=== PATIENT | female | born 1990 | race Caucasian/White ===

== ENCOUNTER 2016-06-25 16:36 | Emergency (ER) | payer SELFPAY ==
[2016-06-25 16:36] VITALS: BMI 26.6
[2016-06-25 16:46] VITALS: BP 123/67; PULSE 75; TEMP 98.4
--- NOTE | 2016-06-25 17:23 | EDPRACDOC ---
- General Information Chief Complaint: Generalized Weakness Stated Complaint: DIZZINESS Time Seen by Provider: 06/25/16 17:05 Information Source: Patient Home Medications: Home Medications Phenazopyridine HCl [Pyridium] 200 mg PO TID #6 tablet 04/07/16 Sulfamethoxazole/Trimethoprim [Bactrim Ds Tablet] 1 tab PO BID #14 tab 04/07/16 Amoxicillin 500 mg PO BID #14 capsule 06/25/16 Fluticasone Propionate [Flonase Nasal [place]] 2 spray AIDEN DAILY #1 each 06/25/16 Loratadine/Pseudoephedrine Sul [Claritin-D 12 Hour Tablet] 1 each PO BID #14 tab.sr.12h 06/25/16 Allergies/Adverse Reactions: Allergies Allergy/AdvReac Type Severity Reaction Status Date / Time No Known Allergies Allergy Verified 06/25/16 16:46 - History of Present Illness Onset: 1 DAY Exact Onset of Symptoms: Known Date Symptoms Started: 06/25/16 HPI: PT STATES FOR THE LAST DAY SHE HAS HAD DIZZINESS RIGHT EAR FULLNESS RUNNY NOSE PT STATES HER CHILD IS SICK WITH URI. 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 OFF MEDS RESOLVED 03/28/2016). Denies: Atrial Fibrillation, Stress Test, Hypercholesterolemia, Internal Defibrillator, Cardiomyopathy, Valvular Heart Disease Respiratory History: Denies: Bronchitis, Asbestosis, Aspiration Pneumonia, Cough , Chronic Bronchitis GI/ History: Reports: Kidney Stones (PASSED WITH OUT INTERVENTION). Denies: Renal (Kidney) Cancer, Kidney (Renal Surgery), Liver Failure, Gastroesophageal Reflux, IBD, BPH Musculoskeletal History: Denies: Rheumatoid Arthritis, Osteoarthritis Psychological History: Denies: Depression, Schizophrenia, Substance Use Disorder Systemic History: Denies: Cancer, Diabetes, HIV, Lupus Surgical History: Reports: Cholecystectomy. Denies: Hysterectomy, Tonsillectomy , Tonsillectomy/Adnoidectomy, Other - Family Medical History Reports: Hypertension (SISTER ), Cancer (MOTHER BREAST CA). Denies: Diabetes, Stroke, Cardiac Disorders, Respiratory Disorders, Renal Disease, Blood Disorders - Social Medical History Smoking Status: Heavy tobacco smoker (5 or more cigarettes/day or daily pipe/ cigar) Social History: Denies: Substance Use Disorder ETOH: None Substance Abuse: None Lives With: Other Lives In: Home EDM Review of Systems - Review of Systems ROS Negative Except as Marked: Yes All systems reviewed and were negative except as marked Constitutional: No Symptoms Reported. negative: Fever, Chills, Weakness, Fatigue, Loss of Appetite Eyes: No Symptoms Reported. negative: Redness, Blurred Vision, Double Vision, Discharge, Pain, Light Sensitive, Photophobia Ears: Other (RIGHT EAR FULLNESS). negative: Drainage, Ear Pulling, Hearing Loss , Pain Throat: No Symptoms Reported. negative: Pain, Swelling Nose: Congestion. negative: Abrasion, Bleeding, Discharge, Deformity, Ecchymosis, Injection, Laceration, Swelling, Tender Mouth: No Symptoms Reported. negative: Pain, Drooling Respiratory: No Symptoms Reported. negative: Cough, Brassy Cough, Barky Cough, Shortness of Breath, Wheezing, Hemoptysis Cardiovascular: No Symptoms Reported. negative: Chest Pain, Palpitations, Syncope, Edema, Orthopnea, PND, Skin Mottling, Cyanosis Gastrointestinal: No Symptoms Reported. negative: Pain, Constipation, Nausea, Vomiting, Diarrhea, Melena, Formula Intolerance Genitourinary: No Symptoms Reported. negative: Dysuria, Hematuria, Frequency, Discharge, Bleeding, Testicular Pain, Neurological: Dizziness. negative: Gait Difficulty, Headache, Numbness, Seizure , Speech Difficulty, Weakness Musculoskeletal: No Symptoms Reported. negative: Neck, Chestwall, Ribs, Back, Shoulder, Arm, Elbow, Forearm, Wrist, Hand, Pelvis, Hip, Femur, Knee, Leg, Ankle , Foot Integumentary: No Symptoms Reported. negative: Itching, Rash, Bruising, Wound Allergic/Immunologic: No Symptoms Reported. negative: Hives, Itching Hematologic: No Symptoms Reported. negative: Lymphadenopathy, Easy Bruising, Easy Bleeding Endocrine: No Symptoms Reported. negative: Weight Gain, Weight Loss Psychiatric: No Symptoms Reported. negative: Anxiety, Depression, Hallucinations, Insomnia, Suicidal - Physical Exam Constitutional: No apparent distress, Alert (Awake) Oriented to: Time, Person, Place Last recorded Vital Signs: Last Vital Signs Temp 98.4 F 06/25/16 16:43 Pulse 75 06/25/16 16:43 Resp 20 06/25/16 16:43 BP 123/67 06/25/16 16:43 Pulse Ox 98 06/25/16 16:43 Oxygen Pulse Oxygen Saturation 98 O2 Device Room Air Oxygen Flow Rate Fraction of Inspired Oxygen ( FIO2) - HEENT Head: Normal ( normocephalic) Eye Exam: Normal (PERRL, EOMI, Sclera white) Oropharynx: Normal (Pharynx:Moist without exudate,Gums-no swelling) Tympanic Membrane: Other (FLUID BEHIND RIGHT TM. MILD REDNESS) ENT EAC: Normal TMJ: Normal Nose: Congestion, Swelling (REDNESS OF TURBINATES) Neck: Normal (FROM, trachea at midline) - Respiratory/Cardiovascular Respiratory: Normal - CTA (BBS clear to auscultation without adventitious sounds ) Cardiovascular: Normal (RRR without murmur, gallop or rub) - GI Auscultation: Normal (NABS) Palpation: Normal (Soft,No rebound or guarding, non distended) Tenderness: Non tender Guajardo's Sign: Negative - Musculoskeletal Back: Normal (Non-Tender) Extremities: Normal (Normal tone, Pulses 2+ No cyanosis or edema, FROM) - Integumentary Skin: Normal, Warm, Dry Lymphatics: Normal (no adenopathy) - Neurologic Memory Impaired: Normal Motor Function: Normal (Normal tone, Pulses 2+ No cyanosis or edema, FROM) Cranial Nerve: Normal (CN II-X11 intact sensation, strength 5/5) Cerebellar: Normal Mood Description: Normal Perception: Normal - Differential Diagnosis Other (SINUSITIS, OTITIS MEDIA, VERTIGO) Decision Time to Discharge: 17:25 - Departure Disposition: Home Condition: Stable Final Diagnosis: Otitis media Qualifiers: Otitis media type: unspecified Laterality: right Chronicity: unspecified Qualified Code(s): H66.91 - Otitis media, unspecified, right ear Sinusitis Qualifiers: Sinusitis location: maxillary Chronicity: acute Recurrence: non-recurrent Qualified Code(s): J01.00 - Acute maxillary sinusitis, unspecified Instructions: Otitis Media (ED), Sinusitis (ED) Education/Counseling Given To: Patient Education/Counseling Given Regarding: Diagnosis, Treatment, Prognosis, Follow Up Referrals: None,No Provider [Primary Care Provider] - One Week Prescriptions: Amoxicillin 500 mg PO BID #14 capsule Fluticasone Propionate [Flonase Nasal [place]] 2 spray AIDEN DAILY #1 each Loratadine/Pseudoephedrine Sul [Claritin-D 12 Hour Tablet] 1 each PO BID #14 tab.sr.12h
== END 2016-06-25 17:35 | disposition home or self-care (01) ==
LOC: EDMC 16:36
DX: H66.91 Otitis media, unspecified, right ear (principal); J01.00 Acute maxillary sinusitis, unspecified
CPT/HCPCS: 99282